=== PATIENT | female | born 1960 | race Caucasian/White ===

== ENCOUNTER → 2024-05-29 06:37 | Outpatient (REF) | payer BC, SELFPAY ==
[2024-05-29 07:34] LABS: ALT (SGPT) 23 U/L (0-35); AST (SGOT) 31 U/L (14-36); Albumin 4.7 g/dl (3.5-5.0); Alkaline Phosphatase 92 U/L (38-126); Blood Urea Nitrogen 23 mg/dl (7-17); Calcium 9.8 mg/dl (8.4-10.2); Carbon Dioxide 25 mmol/L (22-30); Chloride 107 mmol/L (98-107); Glucose 92 mg/dl (70-99); HDL Cholesterol 106 mg/dl; LDL Cholesterol, Calculated 135 mg/dl; Potassium 4.4 mmol/L (3.5-5.1); Sodium 143 mmol/L (135-145); Total Bilirubin 0.4 mg/dl (0.2-1.3); Total Cholesterol 254 mg/dl (50-199); Total Protein 7.3 g/dl (6.3-8.2); Triglyceride 69 mg/dl (10-149); Very Low Density Lipoprotein 13 mg/dl (0-30); eGFR > 60.00
== END ==
LOC: REG 06:37
PROVIDERS: ATTENDING PHYSICIAN Family Medicine; OTHER PHYSICIAN Psychiatry & Neurology Psychiatry
DX: Z00.00 Encounter for general adult medical examination without abnormal findings (principal)
CPT/HCPCS: 36415; 80053; 80061

== ENCOUNTER → 2025-06-12 13:08 | Outpatient (REF) | payer BC, SELFPAY | LOC: WDC 13:08 | PROVIDERS: ATTENDING PHYSICIAN Obstetrics & Gynecology Gynecology; FAMILY PHYSICIAN Physician Assistant | DX: Z12.31 Encounter for screening mammogram for malignant neoplasm of breast (principal); Z80.3 Family history of malignant neoplasm of breast | CPT/HCPCS: 77063; 77067 ==

== ENCOUNTER → 2025-06-19 07:13 | Outpatient (REF) | payer BC, SELFPAY | LOC: HWRAD 07:13 | PROVIDERS: ATTENDING PHYSICIAN Physician Assistant | DX: Z13.820 Encounter for screening for osteoporosis (principal); M54.2 Cervicalgia | CPT/HCPCS: 72052; 77080 ==